=== PATIENT | female | born 1990 | race Caucasian/White ===

== ENCOUNTER 2017-07-12 14:40 | Outpatient (CLI) | payer MEDICAID, SELFPAY ==
[2017-07-12 15:13] LABS: Red Blood Cells-Urine 0 SEEN /hpf (0-5)
[2017-07-12 15:20] LABS: Color, Urine Yellow (Yellow); Glucose, Dipstick Normal (Normal); Ketone-Dipstick 5 mg/dl (Negative); Leukocyte Esterase-Dipstick 100 /ul (Negative); Nitrite-Dipstick Negative (Negative); Occult Blood-Urine 10 /ul (Negative); Protein-Dipstick 15 mg/dl (Negative); Specific Gravity, Urine 1.025 (1.002-1.030); Urine Bilirubin Dipstick Negative (Negative); Urine Clarity Sl. Cloudy (Clear); Urine Urobilinogen 1 mg/dl (Normal)
[2017-07-12 15:27] LABS: Mucous, Urine 3+ /hpf (<or=2+); Squamous Epithelial Cells - UA 50-100 SEEN /hpf (5-10)
[2017-07-12 15:29] LABS: Bacteria 2+ /hpf (None Seen); White Blood Cells 10-25 SEEN /hpf (0-5)
[2017-07-12 16:21] VITALS: BMI 47.5
--- NOTE | 2017-07-13 07:11 | OB.TRI.NOTE ---
History of Present Illness Date of Service: 07/12/17 Was patient seen by the physician?: No Reason For Visit: PELVIC PRESSURE Final HALEY: 09/14/17 Final HALEY Source: US <20 weeks Gestational age: 31 Weeks and 0 Days History of Present Illness: 26yo c/o pelvic pressure Home Medications Medication Instructions Recorded Albuterol Inhaler [Ventolin Hfa] 1 - 2 puff INHALATION Q4H PRN PRN 04/25/17 #1 inhaler Pnv95/Ferrous Fumarate/FA 1 each PO DAILY 04/25/17 [ Formula] Famotidine [Pepcid] 20 mg PO PRN PRN 07/12/17 Allergies sulfite Allergy (Verified 07/12/17 16:23) Rash Physical Exam General: Alert, Oriented x3 NST - FHR Rate Baby A Baseline: 135 Variability:: Moderate Accelerations:: 15 x 15 Decelerations:: None NST Reactive:: Yes FHR Category:: Category I Uterine Activity:: no ctx Impression/Plan 31 wks with pelvic pressure 1) UA- ketones, protein, - sent for culture 2) increase PO fluids 3) no signs of pre term labor 4) dc home
== END 2017-07-12 16:29 | disposition home or self-care (01) ==
LOC: WPOUT 14:48 → WP 14:49
PROVIDERS: Visit Provider Obstetrics & Gynecology
DX: O26.893 Other specified pregnancy related conditions, third trimester (principal); R10.2 Pelvic and perineal pain; Z3A.31 31 weeks gestation of pregnancy
CPT/HCPCS: 59025; 59050; 81001; 87086; 87088; 99218; G0378

== ENCOUNTER 2017-09-14 12:55 | Inpatient (IN) | payer MEDICAID, SELFPAY ==
[2017-09-14 13:10] VITALS: BMI 47.9
[2017-09-14] MEDS: Lactated Ringers 1,000 ML 50 ML IV ×3 (13:10→23:02)
[2017-09-14 13:32] LABS: Hematocrit 34.7 % (37-47); Hemoglobin 11.3 g/dl (12.0-15.0); Mean Corp Hgb Conc 32.6 g/gl (32-36); Mean Corpuscular Hgb 27.7 pg (27.0-32.0); Mean Platelet Vol. 11.5 fl (6.2-12.0); Platelet Count 197 K/mm3 (150-450); RBC Distribution Width SD 43.3 fl (35.1-43.9); Red Blood Count 4.08 M/mm3 (4.2-5.4)
[2017-09-14 13:33] LABS: Scan Indicated on CBC? Y/N NO
--- NOTE | 2017-09-14 14:33 | PCM.HP.OB ---
History Date of Admission: 09/14/17 Final HALEY: 09/14/17 Final HALEY Source: US <20 weeks Gestational age: 40 Weeks and 0 Days History of this : 26-year-old 3 para 2 female presents at 40 weeks gestation with EDC of 09/14/2017 by last menstrual period confirmed by early ultrasound who presents for an elective induction of labor. History of LGA mates with her previous records being in the 9 pound range. She had an estimated weight in the office today that was proximally 8-1/2 pounds 3 placenta. She has had some maternal discomfort and was offered an elective induction of labor due to favorable cervix and patient elects to proceed. He has been uncomplicated to date. She has a history of 2 previous full-term spontaneous vaginal deliveries without significant complications. She denies any history of shoulder dystocias. She has 1 living child, her other child ceased from SIDS at 2 months of age in 2009. This is uncomplicated to date. Pertinent Past Medical History: Past medical history significant for knee surgery, previous smoker quit in 2015, general obesity with BMI of 48, chronic shoulder pain, and history of asthma though she has not used any medications for this in 3 years. Allergies sulfite Allergy (Verified 09/14/17 13:20) Rash Current Medications Acetaminophen (Tylenol) 325 - 650 mg PO Q4H PRN PRN PRN Reason: PAIN OR FEVER >100.4F Al Hydroxide/Mg Hydroxide (Mylanta Ii) 15 - 30 ml PO Q4H PRN PRN PRN Reason: INDIGESTION Citric Acid/Sodium Citrate (Bicitra) 30 ml PO UD PRN Oxytocin/Sodium Chloride () 30 units in 500 mls @ 1 mls/hr IV .Q500H ALYX Lactated Ringer's () 1,000 mls @ 50 mls/hr IV .Q20H ALYX Nalbuphine HCl (Nubain) 5 - 10 mg IV Q3H PRN PRN PRN Reason: PAIN (4-10/10) Ondansetron HCl (Zofran) 4 mg IV Q8H PRN PRN PRN Reason: NAUSEA Promethazine HCl (Phenergan) 6.25 - 12.5 mg IV Q4H PRN PRN; Protocol PRN Reason: IF NAUSEA PERSISTS Sodium Chloride () 5 - 15 ml IV UD [facility] Smoking Status: Former smoker Alcohol: None Number of Fetus(es): 1 Review of Systems Constitutional: Denies: Anorexia, Chills Eyes: Denies: Blurred vision Respiratory: Denies: Shortness of Breath Skin: Denies: Rash Physical Exam General: Alert, Cooperative, No apparent distress Cardiovascular: Regular rate Lungs: Normal air movement Abdomen: Soft, Non Tender, Non-Distended, Gravid, - - measured 44 cm fundal height, AGA on US Extremities:: Other - edema 2+ Presentation: Cephalic Cervix Dilation (cm): 4 - medium consistency, posterior Station: -3 Effacement (%): 60 - AROM w/ moderate amt Moderate MSF Assessment/Plan 26-year-old 3 para 2 female at 40 weeks gestation for elective induction of labor due to favorable cervix. Pitocin and artificial rupture membranes induction. Risks benefits and alternatives have been discussed with patient, her questions were answered to her satisfaction she desires to proceed. May have epidural, nitrous oxide or Nubain as needed for pain control. Estimated weight is less than 5000 g and pelvis is clinically adequate to expect vaginal delivery. Meconium-stained fluid and yam curer will be notified for delivery.
--- NOTE | 2017-09-14 14:40 | HP.PCM_ITS ---
History Date of Admission: 09/14/17 Final HALEY: 09/14/17 Final HALEY Source: US <20 weeks Gestational age: 40 Weeks and 0 Days History of this : 26-year-old 3 para 2 female presents at 40 weeks gestation with EDC of by last menstrual period confirmed by early ultrasound who presents for an elective induction of labor. History of LGA mates with her previous records being in the 9 pound range. She had an estimated weight in the office today that was proximally 8-1/2 pounds 3 placenta. She has had some maternal discomfort and was offered an elective induction of labor due to favorable cervix and patient elects to proceed. He has been uncomplicated to date. She has a history of 2 previous full-term spontaneous vaginal deliveries without significant complications. She denies any history of shoulder dystocias. She has 1 living child, her other child ceased from SIDS at 2 months of age in 2009. This is uncomplicated to date. Pertinent Past Medical History: Past medical history significant for knee surgery, previous smoker quit in 2015 , general obesity with BMI of 48, chronic shoulder pain, and history of asthma though she has not used any medications for this in 3 years. Allergies sulfite Allergy (Verified 09/14/17 13:20) Rash Current Medications Acetaminophen (Tylenol) 325 - 650 mg PO Q4H PRN PRN PRN Reason: PAIN OR FEVER >100.4F Al Hydroxide/Mg Hydroxide (Mylanta Ii) 15 - 30 ml PO Q4H PRN PRN PRN Reason: INDIGESTION Citric Acid/Sodium Citrate (Bicitra) 30 ml PO UD PRN Oxytocin/Sodium Chloride () 30 units in 500 mls @ 1 mls/hr IV .Q500H ALYX Lactated Ringer's () 1,000 mls @ 50 mls/hr IV .Q20H ALYX Nalbuphine HCl (Nubain) 5 - 10 mg IV Q3H PRN PRN PRN Reason: PAIN (4-10/10) Ondansetron HCl (Zofran) 4 mg IV Q8H PRN PRN PRN Reason: NAUSEA Promethazine HCl (Phenergan) 6.25 - 12.5 mg IV Q4H PRN PRN; Protocol PRN Reason: IF NAUSEA PERSISTS Sodium Chloride () 5 - 15 ml IV UD [facility] Smoking Status: Former smoker Alcohol: None Number of Fetus(es): 1 Review of Systems Constitutional: Denies: Anorexia, Chills Eyes: Denies: Blurred vision Respiratory: Denies: Shortness of Breath Skin: Denies: Rash Physical Exam General: Alert, Cooperative, No apparent distress Cardiovascular: Regular rate Lungs: Normal air movement Abdomen: Soft, Non Tender, Non-Distended, Gravid, - - measured 44 cm fundal height, AGA on US Extremities:: Other - edema 2+ Presentation: Cephalic Cervix Dilation (cm): 4 - medium consistency, posterior Station: -3 Effacement (%): 60 - AROM w/ moderate amt Moderate MSF Assessment/Plan 26-year-old 3 para 2 female at 40 weeks gestation for elective induction of labor due to favorable cervix. Pitocin and artificial rupture membranes induction. Risks benefits and alternatives have been discussed with patient, her questions were answered to her satisfaction she desires to proceed. May have epidural, nitrous oxide or Nubain as needed for pain control. Estimated weight is less than 5000 g and pelvis is clinically adequate to expect vaginal delivery. Meconium-stained fluid and public service officer will be notified for delivery.
[2017-09-14] MEDS: Oxytocin 30 units/NS 500 ml 30 UNITS/500 ML IV.SOLN IV (14:44)
[2017-09-14] MEDS: fentaNYL-bupivacaine (epidural) 100 ML BAG EPIDURAL ×2 (18:00→22:03)
[2017-09-14] MEDS: Mag Hydrox/Al Hydrox/Simeth 30 ML UDC PO (20:14)
[2017-09-15] MEDS: Oxytocin 30 units/NS 500 ml 30 UNITS/500 ML IV.SOLN 334 UNITS IV (01:29)
--- NOTE | 2017-09-15 01:39 | PCM.OB.VAG ---
Vaginal Delivery Maternal Presentation: Elective Induction - favorable cervix, h/o LGA neonates Method of Induction: Pitocin, Amniotomy Amniotic Membrane Rupture Type: Artificial Amniotic Fluid Description: Moderate meconium Final HALEY: 09/14/17 Final HALEY Source: US <20 weeks Gestational age: 40 Weeks and 1 Days Date of Procedure: 09/15/17 Pre-Operative Diagnosis: labor Post-Operative Diagnosis: same Surgery/ Procedure Performed: Spontaneous Vaginal Delivery Description of Procedure: A vigorous female infant was delivered KATHERYN over a superficial first-degree perineal laceration. The remainder the infant was delivered with maternal pushing and gentle traction only in less than 15 seconds. The Pitocin infusion was initiated for active management of the third stage. The cord was clamped and cut after 1 minute. The was attended to by the waiting nursing staff. The placenta was delivered spontaneously and intact. The cervix and vagina were intact. The laceration was very superficial, 1 cm, and hemostatic and was not repaired. Sponge and needle counts were correct. A vaginal sweep was completed by me. Presentation: KATHERYN Placental Delivery Description: Spontaneous Placenta Disposition: [facility] Cord Vessel Description: 3 Vessels Cord Entanglement: None Drain: Benoit to straight drain Estimated Blood Loss: 200 Infant A gender: Female Episiotomy Description: None Laceration: 1st degree
[2017-09-15] MEDS: Oxytocin 30 units/NS 500 ml 30 UNITS/500 ML IV.SOLN 167 UNITS IV (01:59)
[2017-09-15] MEDS: 0.9% Saline Lock 10 ML Syringe IV (03:01)
[2017-09-15 03:40] VITALS: BP 114/56; PULSE 89; RESP 20; TEMP 36.6
[2017-09-15 08:00] VITALS: BP 113/61; PULSE 82; RESP 20; TEMP 36.8; O2SAT 98
--- NOTE | 2017-09-15 10:06 | NURSING ---
Reviewed assessment and vital signs charting done by. SN Ruben.
[2017-09-15] MEDS: Naproxen 250 MG Tablet PO ×2 (10:53→19:42)
--- NOTE | 2017-09-15 11:24 | NURSING ---
Assisted SN Ruben with medication administration.
[2017-09-15 12:00] VITALS: BP 123/63; PULSE 84; RESP 16; TEMP 36.4
--- NOTE | 2017-09-15 13:00 | CASEMGMT ---
Social Work Note Labor and Delivery Unit Social Work Assessment completed. Refer to documentation below for further details. Date of Referral: 09/15/2017 Time of Referral: 0830 Referred By: verbal notification from nursing staff Date of Intervention: 09/15/2017 Time of Intervention: 1300 Reason for Referral: maternal history of loss of 2nd child and noncustody of oldest child History obtained from: medical record and mother of baby (MOB) Benito Olivera Household composition: MOB and reported father of baby (FOB) reside together. MOB reports home situation is safe and adequate. Patient's parent/guardian status: MOB reports has been in an 8 year relationship with FOB, Og Luong. MOB denies any form of abuse in this relationship. [place] is the first child for MOB and FOB together, and the first child for. Minor Children: Alpesh Bob, born in July 2007. Currently residing with the father Jeremie Bob. MOB reports to have shared parenting of this child, to have visits every other weekend and once during the week. However, MOB reports Jeremie disappeared with Alpesh 5 years ago and cannot be found. Per report from nursing staff admitting MOB on 09-14-17, the current FOB made comment that has never met Alpesh and he has been with JAYME for 8 years. Shiraz Bob, born in April 2009 of reported SIDS at 44 days old. Xiomara Luong this admission on 09-15-17. Medical History: JAYME is G3, P2 to 3 after delivery of Xiomara. care stared at 6 weeks gestation. born weighing 3450 grams, Apgars 8 and 9. Educational Status: MOB reports to have a GED. MOB reports mild dyslexia but that is able to read and comprehend at a 12th grade level. Financial Status: JAYME is on maternity leave from [employer] Reports to be getting short term diaz assistance through [employer], had also been working with [employer]. FOB works at [employer] in [place]. Infant Supplies: MOB reports to have needed supplies including a crib, bassinet, pack-n-play, diapers, wipes, clothing, and car seat. MOB has a breast pump and planning to breast feed. Childcare/Caregiver(s): MOB. MOB reports when returns to work will use [facility]. Transportation: MOB has a drivers license but now car. MOB relies on [employer], FOBs mother, [employer] program and insurance company for [facility]. Programs/Agencies Involved: Active with [employer], medical and diaz. Active with WIC. Active with [facility] [employer] and plans to call to alert to of baby. Reports active with [facility], seeing Porsha for groups and Traci for individual counseling. Active with [facility]. [facility] with [facility]. Children Services/Legal Issues: MOB denies legal issues. MOB reports history of [facility] after Chance . MOB reports there was concern that there were too many people living in a one family home, too much clutter going on. MOB reports the linen room houseperson did give primary custody over to Chaseellen father, right after the loss of Shiraz, so that MOB could attend to grief counselling and self-care needs. Behavioral Health Issues: MOB denies any history of depression, anxiety, or other mental health issues. MOB reports has had grief counseling and continues in counseling for this currently. MOB denies any history of suicidal or homicidal thoughts, plans, or intent. MOB reports family history of depression in MOBs identical twin sister. MOB reports younger sister has Bipolar Disorder and Schizophrenia. MOB denies any history of alcohol use or abuse and no use during . MOB reports tried marijuana as a teen but nothing as an adult and nothing during pregnancies. MOB denies any history of illicit drug use including cocaine, heroin, methamphetamines and narcotic prescription pills. MOB is a former tobacco smoker. Family/Social Stressors: MOB has history of loss to reported SIDs and then oldest child has been unable to be located for the last 5-8 years. MOB continues to be in counseling for these past child loss stressors. Support Systems: MOB reports support form Og and Behzad younger sister. FOB mother lives down the road and is another person MOB can call for help. MOB reports primary emotional support would be through Traci and Porsha at [facility]. Depression/Shaken Baby/Safe Sleeping: MOB able to identify appropriate responses to safe sleeping and shaken baby prevention. MOB educated to depression and anxiety, risk factors present, and importance of letting others know if symptoms arise. ASSESSMENT: MOB pleasant and cooperative with social work visit. Initially guarded but as conversation went on communicated more openly. MOB reports to have all needed supplies for baby, to have support from FOB. MOB reports can also call FOBs mother if needed. MOB reports plan to stay in counseling with an appointment setup for 5-30-18. MOB reports to cope with stressors by talking things out and to use sarcasm to distract self. MOB held good eye contact, affect and mood congruent and appropriate with this rewriter. MOB reports to feel a connection to baby and to love the baby. MOB is also well connected with community agencies, and reports awareness of the need to call and involved agencies know of of baby. PLAN: MOB and baby to home when ready for discharge. MOB provided with packet ton depression, local supports for such and online supports. Provided resources packet for [facility] as well. No other services requested or indicated. -ESTRELLA Seymour, LONG TERM CARE ADMINISTRATOR
--- NOTE | 2017-09-15 14:25 | NURSING ---
Reviewed all documentation done by SN Ruben.
--- NOTE | 2017-09-15 15:00 | CASEMGMT ---
Social Work Labor and Delivery Unit Called [facility] ([facility]) and spoke with Magdalene in the intake department, . Referral given due to past history with children services in [facility], after the of 2nd child to SIDS and then transfer of custody to the father of the oldest child. Let [facility] know that MOB has been doing well so far, no issues with care or drugs, and that MOB seems well connected with services in [facility]. Concern mainly the history with children services that resulted in MOB not having custody. Magdalene reports will look at past history to see if enough concern to warrant a new case at this time. Received call from Magdalene at [facility]. The report this newspaper writer called in is being screened out for investigation. Not enough new concern to open a case. Should further concerns arise prior to discharge can alert hospital social work again, otherwise no further needs requested or indicted. Refer to social work assessment documented earlier this date for details of resources involved and social history of family. -ESTRELLA Seymour, ANTIQUE CLOCKS REPAIRER
[2017-09-15 17:05] VITALS: BP 108/65; PULSE 94; RESP 18; TEMP 36.4; O2SAT 97
[2017-09-15 19:24] VITALS: BP 96/47; PULSE 76; RESP 18; TEMP 36.6; O2SAT 97
[2017-09-15 23:40] VITALS: BP 105/57; PULSE 88; RESP 16; TEMP 36.4; O2SAT 97
[2017-09-16 03:15] VITALS: BP 108/57; PULSE 73; RESP 18; TEMP 36.8; O2SAT 96
[2017-09-16] MEDS: Naproxen 250 MG Tablet PO (06:03)
[2017-09-16 07:58] VITALS: BP 114/46; PULSE 75; RESP 16; TEMP 37; O2SAT 98
--- NOTE | 2017-09-16 10:09 | DCINST_ITS ---
Discharge Diet: No Restrictions Discharge Activity: Return to Normal Activity, May not drive while taking narcotic pain medications., May Shower May resume sexual activity in: 4-6 weeks Additional Activity Instructions:: Nothing in the vagina for 4-6 weeks. You may return to work/school in 6 weeks. Call your doctor if your incision/area has: Continuous Slow Oozing, Sudden Increased Bleeding, Increased Pain/ Swelling, Increased Redness, Foul Smelling Discharge Call your doctor if you observe: Fever of 101 or Higher, Inability to urinate, Inability to have a bowel movement, Using more than one pad per hour, Shortness of breath, Calf discomfort, Uncontrolled pain Additional Instructions: If you experience any of the following, contact your healthcare provider. * Bleeding that soaks a pad every hour for 2 hours * Fever 100.4 or higher * Unrelieved incision or abdominal pain * Swelling, redness, discharge or bleeding from your incision or episiotomy site * Your incision begins to separate * Problems urinating (including inability to urinate or burning while urinating) . * Visual changes * Severe headache * Flu-like symptoms * Pain or redness in one of both of your breasts * Pain, warmth, tenderness or swelling in your legs, especially the calf area * Frequent nausea and vomiting * Symptoms of depression or anxiety If you experience any of the following, call 911 or go to the nearest Emergency Room. * Chest pain * Problems breathing * Seizure activity * Partial or complete paralysis of a body part, slurred speech, weakness or drooping of the face, or a sudden inability to walk or hold your balance Allergies/Adverse Reactions: Allergies sulfite Allergy (Verified 09/14/17 13:20) Rash Medications to take at Discharge Albuterol Inhaler [Ventolin Hfa] 1 - 2 puff INHALATION Q4H PRN PRN #1 inhaler Pnv95/Ferrous Fumarate/FA [ Formula] 1 each PO DAILY 04/25/17 Famotidine [Pepcid] 20 mg PO PRN PRN 07/12/17 Acetaminophen [Tylenol] 325 mg PO PRN PRN 09/14/17 Please Follow Up With: Ayala Sosa MD When: Call to make an appointment with your doctor in 6 weeks. If you had elevated Blood Pressure or 4th degree laceration you will need to be seen in 2 weeks. Primary Care Physician: Care Physician,No Primary [Primary Care Provider] - Proposed Discharge Date: 09/16/17
--- NOTE | 2017-09-16 10:20 | PN.OBGYN_ITS ---
Subjective: Patient sitting up in bed, reports baby latched well and is going okay. Patient denies any issues at this time; reports I'm ready to go home. Patient denies JOYA, scotoma, or any issues with urination or ambulation. Objective: See Nursing Note for Vital signs and nurse assessment Nipples without cracks or blisters, no erythema Abdomen NT x 4 quadrants, FF midline @ umbilicus Perineum well approximated, scant rubra lochia - Physical Exam General: Alert, Oriented x3, Cooperative HEENT: Atraumatic, Normocephalic Lungs: Normal air movement Cardiovascular: Regular rate, Regular Rhythm Abdomen: Soft, Non Tender, Non-Distended, No Hepato-splenomegaly, Passing Flatus Extremities: No edema, Capillary Refill Less than 3 Seconds, No Calf Tenderness , Peripheral Pulses Normal Skin: No rashes, No breakdown Musculoskeletal: No Tenderness to Palpation of Joints or Extremities Neurological: Cranial nerves II-XII grossly intact, Deep Tendon Reflexes 2+/4 and Symmetrical, Coordination normal Psych/Mental Status: Normal Affect, Appropriate, Alert and oriented to time, place, person, mood and affect Vital Signs Temp Pulse Resp BP Pulse Ox 98.6 F 75 16 114/46 L 98 09/16/17 07:58 09/16/17 07:58 09/16/17 07:58 09/16/17 07:58 09/16/17 07:58 Oxygen Delivery Method Room Air Weight: 254 lb Body Mass Index (BMI) 47.9 Intake and Output for Last 24 Hours 09/14/17 09/15/17 09/16/17 23:59 23:59 23:59 Intake Total 2444.6 / 2444.6 539 / 539 Output Total 400 / 400 1850 / 1850 Balance 2044.6 / 2044.6 -1311 / -1311 Medical Necessity - Tobacco Use Smoking Status: Former smoker Assessment/Plan 26 y/o G3 now P3, s/p , PPD #1, Normal Course P: 1) Anticipatory PP discharge teaching done 2) Patient reports she has a breast pump at home already - declines Rx of breast pump today 3) Discharge to home pending discharge Sally Garber APRN-CAR
[2017-09-16 14:10] VITALS: BP 128/62; PULSE 85; RESP 16; TEMP 36.6; O2SAT 98
== END 2017-09-16 14:40 | disposition home or self-care (01) | DRG 373 ==
PROVIDERS: Admitting Provider Obstetrics & Gynecology; Visit Provider Obstetrics & Gynecology
DX: O48.0 Post-term pregnancy (principal); Z3A.40 40 weeks gestation of pregnancy; O77.0 Labor and delivery complicated by meconium in amniotic fluid; O70.0 First degree perineal laceration during delivery; O99.214 Obesity complicating childbirth; Z37.0 Single live birth; Z68.42 Body mass index [BMI] 45.0-49.9, adult; Z87.891 Personal history of nicotine dependence
CPT/HCPCS: 59025; 59050; 85027; 86850; 86900; 99218; J7120; A4216; G0378

== ENCOUNTER 2018-03-29 09:59 | Emergency (ER) | payer MEDICAID, SELFPAY ==
[2018-03-29 09:59] VITALS: BP 126/77; PULSE 95; RESP 18; TEMP 37; O2SAT 99; BMI 40.6
--- NOTE | 2018-03-29 10:37 | ED.DCSUM_ITS ---
- ER Visit Summary Date of Service: 03/29/18 Chief Complaint: Cough, sore throat History of Present Illness: The patient is a 27 F with history of asthma presents to the emergency department cough and sore throat. Patient had symptoms for the past week. States initially, started with a mild sore throat nasal drainage. She states that she lost her voice. States voices come back, but now she is having worsening cough. She has had low-grade fevers. She denies any productive sputum. The patient does have a history of asthma. She does not smoke. She is recently run out of her inhaler. Her daughter is sick at home with similar symptoms. She is also concerned because someone at work had bronchitis and has been out of work for 2 weeks. Physical Examination: Vital signs reviewed General: Well-nourished, well-developed Head: Normocephalic, atraumatic Eyes: Pupils equal and reactive, extraocular muscles intact Neck, supple, no lymphadenopathy Heart: Regular rate and rhythm Respiratory: No distress, scant wheeze throughout Abdomen: Soft, nontender, nondistended, no peritoneal signs Back: Nontender Extremities: Nontender, no edema, no cords Skin: Normal color no rash Neuro: Alert and oriented, no focal or lateralizing deficits Test Results: [] Emergency Department Course and Treatment: The patient has no focal change in lung sounds. She has no tachypnea or hypoxia. My suspicion is that this is li ayana viral. She does have wheezing and is out of her inhaler. I am going to treat the patient with a prednisone burst, cough suppressant, and an inhaler. I do feel that she is safe for outpatient therapy. I do not see a clear indication for antibiotics at this time. Treatment Plan: [] Disposition: Discharge Impression: Viral URI This note was generated with Jukely dictation software. It may contain incorrect words, spelling, and punctuation that were not noted in review of the chart prior to signing ED Disposition - Plan for ED Patient: Chief Complaint: Sore Throat Instructions: ED Upper Resp Infec No Abx Tx Prescriptions: Albuterol Inhaler [Ventolin Hfa] 2 puff INHALATION Q4H PRN PRN #1 inhaler PRN Reason: Wheezing Benzonatate [Tessalon Perle] 200 mg PO TID PRN PRN #20 cap PRN Reason: Cough predniSONE tablet 60 mg PO DAILY #15 tab Referrals: Care Physician,No Primary [Primary Care Provider] -
[2018-03-29] MEDS: predniSONE 20 MG Tablet 60 MG PO (10:38)
[2018-03-29 11:24] VITALS: PULSE 78; RESP 114; O2SAT 100
== END 2018-03-29 11:26 | disposition home or self-care (01) ==
LOC: ED 10:31
PROVIDERS: Emergency Provider Emergency Medicine
DX: J06.9 Acute upper respiratory infection, unspecified (principal)
CPT/HCPCS: 99283

== ENCOUNTER 2019-02-14 09:25 | Emergency (ER) | payer MEDICAID, SELFPAY ==
[2019-02-14 09:28] VITALS: BP 112/73; PULSE 72; RESP 16; TEMP 37.2; O2SAT 98; BMI 41.6
--- NOTE | 2019-02-14 10:05 | ED.VIS.URI ---
History of Present Illness Chief Complaint: Sore Throat Informant: Patient Onset: Weeks - 1 Context: Gradual Onset Timing: Continuous Quality: sore Location: throat Current Severity: Moderate Maximum Severity: Moderate Worsened by: Swallowing Relieved by: Tylenol - helps some Associated Symptoms: Nasal Congestion, Vomiting - only posttussive, Nonproductive cough. Negative for: Headache, Nausea, Diarrhea, Shortness of Breath, Chest Pain, Hemoptysis Narrative: Mainly complaining of sore throat, sore some mandibular areas as well. No known fevers. Has a daughter that has a cough as well and is in daycare. She is asking for a work note, but also here for her throat. She is not a diabetic or taking medications for any other medical problems except asthma, which she states has not been flared up during this illness. - Past Medical History (1) Asthma Status: Chronic Past Medical History - Allergies and Home Meds Allergies/Adverse Reactions: Allergies sulfite Allergy (Verified 03/29/18 10:02) Rash Primary Care Physician: Care Physician,No Primary [Primary Care Provider] - Past Medical History: None Smoking Status: Current every day smoker Drugs: None Review of Systems General: Reports: Malaise. Denies: Chills, Fever, Sweats Eyes: Denies: Visual changes - bilaterally, Diplopia ENT: Reports: Sore throat. Denies: Bilateral ear pain, Rhinorrhea Cardiovascular: Denies: Chest pain, Palpitations Respiratory: Reports: Cough. Denies: Dyspnea, Sputum, Dyspnea on exertion, Orthopnea Gastrointestinal: Denies: Abdominal pain, Nausea, Vomiting, Diarrhea, Melena, Hematochezia Musculoskeletal: Reports: Neck pain. Denies: Swelling, Extremity Pain Skin: Denies: Rash, Wounds Neurological: Denies: Headache, Weakness, Numbness Physical Exam Vital Signs/Narrative: Vital Signs Temp Pulse Resp BP Pulse Ox 02/14/19 09:28 98.9 F 72 16 112/73 98 Inital Vital Signs reviewed: Yes General: Well nourished, Well developed, - - Well-appearing, NAD Head: Normocephalic, Atraumatic Eyes: Perrl, EOMI Ears: Normal external canal, TM's clear Nose: Normal Inspection, No Rhinorrhea. Negative for: Purulent Drainage Mouth/Throat: Posterior Oropharyngeal Erythema - Without asymmetry or exudates Neck: No Meningismus, Anterior Lymphadenopathy - Bilateral some mandibular. Negative for: Posterior Lymphadenopathy Cardiovascular: Regular rate, Regular rhythm, No murmurs Respiratory: No distress, CTA bilaterally, Chest nontender Abdomen: Soft, Nontender, Nondistended, Normal bowel sounds Skin: Normal color, No rash, No Trauma Neurological: Alert, Oriented x3, Cranial nerves II-XII grossly intact, Normal Strength, Normal Sensation Psychological: Normal affect Diagnostic/Tx/Re-eval - Medical Decision Making Rapid strep was obtained at the time I saw the patient, by myself. There was a long delay because the lab forgot to put the results in. We eventually checked, it is negative. Patient was given Decadron and ibuprofen and instructions for supportive care for what is likely viral in etiology, there is a culture being sent. She was given a work note. She wants to be able to go back to work tomorrow which I think is fine. ED Disposition - Plan for ED Patient: Disposition: Home or Assisted Living Diagnosis: Acute viral pharyngitis Instructions: PHARYNGITIS, Viral Referrals: Doctor,Your [STAFF PHYSICIAN] - 1 Week if not improving
[2019-02-14] MEDS: Ibuprofen 600 MG Tablet PO (11:40)
[2019-02-14] MEDS: dexAMETHasone 10 MG/ML Vial 15 MG PO.IVFORM (11:43)
== END 2019-02-14 12:19 | disposition home or self-care (01) ==
PROVIDERS: Emergency Provider Emergency Medicine
DX: J02.9 Acute pharyngitis, unspecified (principal)
CPT/HCPCS: 87880; 99283